=== PATIENT | male | born 1980 | race Caucasian/White ===

== ENCOUNTER 2021-08-20 18:02 | Emergency (ER) | payer OTHER ==
[~2021-08-20] VITALS: Ht 165.1 cm; Wt 62.6 kg
[2021-08-20 18:55] VITALS: BP 137/88
--- NOTE | 2021-08-21 | NUR ---
PATIENT ELOPED FROM FACILITY. DISCHARGE INSTRUCTIONS NOT GIVEN TO PATIENT. DR. TENORIO NOTIFIED.
--- NOTE | 2021-08-21 00:02 | NUR ---
0000 - PT LEFT WITHOUT PAPERWORK PER MAHSA
== END 2021-08-21 | disposition left against medical advice (07) ==
LOC: MED 18:02
DX: M79.674 Pain in right toe(s) (principal); L53.9 Erythematous condition, unspecified
CPT/HCPCS: 73660; 99283